=== PATIENT | female | born 1950 | race Caucasian/White ===

== ENCOUNTER 2017-01-24 09:15 | Emergency (ER) | payer OTHER, MEDICARE ==
[~2017-01-24] VITALS: Ht 157.5 cm; Wt 60.0 kg
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
[2017-01-24 09:33] VITALS: BP 153/72; PULSE 80; RESP 16; O2SAT 99
[2017-01-24] MEDS ORDERED: LORA-474 PO (09:33)
[2017-01-24] MEDS ORDERED: ACETAMINOPHEN/HYDROcodone 325 MG/5 MG TAB PO ONE ×2 (09:45→15:15)
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
[2017-01-24 16:50] VITALS: RESP 14
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
[2017-01-24] MEDS ORDERED: NORC5TAB PO (17:22)
[2017-01-24] MEDS ORDERED: ORPH100T99 PO (17:22)
[2017-01-24] MEDS ORDERED: IBUP400T20 PO (17:22)
[2017-01-24 17:26] VITALS: BP 135/74
== END 2017-01-24 17:33 | disposition home or self-care (01) ==
LOC: NEPD 09:15
DX: M54.5 Low back pain (principal); V43.52XA Car driver injured in collision with other type car in traffic accident, initial encounter; Y92.410 Unspecified street and highway as the place of occurrence of the external cause
CPT/HCPCS: 72050; 72072; 72110; 72128; 72146